=== PATIENT | female | born 1965 ===

== ENCOUNTER → 2017-12-17 | Outpatient (CLI) | payer OTHER ==
[~2017-12-17] MED LIST: HYDR-385 PO
--- NOTE | 2017-12-21 11:19 | RADIOLOGY IMAGING REPORT ---
FACILITY: [facility] [place] PATIENT NAME: LYNNE FOUNTAIN : [id number] MR: [id number] V: [id number] EXAM DATE: ORDERING PHYSICIAN: JEFE DRUMMOND TECHNOLOGIST: Estefania Le PROCEDURE:BILATERAL DIGITAL SCREENING MAMMOGRAM WITH CAD ASSISTED INTERPRETATION & 3D TOMOSYNTHESIS COMPARISON:Prior mammograms 02/15/15 & 12/09/16. INDICATIONS:SCREENING FINDINGS: The breast tissue is heterogeneously dense. There is no dominant mass, suspicious cluster of microcalcifications or persistent areas of architectural distortion. DIAGNOSTIC CATEGORY 1--NEGATIVE. RECOMMENDATIONS: ROUTINE MAMMOGRAM AND CLINICAL EVALUATION IN 1 YEAR. IMPRESSION: BIRADS 1: Negative. Dictated by: Ehsan Patterson M.D. on 12/21/2017 at 10:41 Transcribed by: TANISHA on 12/21/2017 at 10:49 Approved by: Ehsan Patterson M.D. on 12/21/2017 at 11:18 [facility]
== END ==
LOC: MAMO 03:27
PROVIDERS: ATTEND Obstetrics & Gynecology
DX: Z12.31 Encounter for screening mammogram for malignant neoplasm of breast (principal)
CPT/HCPCS: 77063; 77067